=== PATIENT | female | born 1990 | race Two or more races ===

== ENCOUNTER 2017-03-16 19:29 | Emergency (ER) | payer OTHER ==
[~2017-03-16] VITALS: Ht 165.1 cm; Wt 63.5 kg
[2017-03-16 19:34] VITALS: BP 122/79
== END 2017-03-16 19:43 | disposition home or self-care (01) ==
LOC: ER 19:35
DX: S80.862A Insect bite (nonvenomous), left lower leg, initial encounter (principal); S80.861A Insect bite (nonvenomous), right lower leg, initial encounter; W57.XXXA Bitten or stung by nonvenomous insect and other nonvenomous arthropods, initial encounter; Y92.89 Other specified places as the place of occurrence of the external cause; Y93.89 Activity, other specified; Y99.8 Other external cause status
CPT/HCPCS: 99282; A4606; Z7610

== ENCOUNTER 2022-07-12 21:33 | Emergency (ER) | payer OTHER ==
--- NOTE | 2022-07-12 22:40 | NUR ---
CALLED FOR TRIAGE. NO ANSWER
--- NOTE | 2022-07-12 22:59 | NUR ---
called for triage no answer
== END 2022-07-12 23:00 | disposition left against medical advice (07) ==
LOC: ER 21:34
DX: Z53.21 Procedure and treatment not carried out due to patient leaving prior to being seen by health care provider (principal)